=== PATIENT | female | born 1995 | race Two or more races ===

== ENCOUNTER 2019-12-13 12:17 | Emergency (ER) | payer OTHER, MEDICAID ==
[~2019-12-13] VITALS: Ht 180.3 cm; Wt 71.0 kg
[2019-12-13] MEDS ORDERED: SODIUM CHLORIDE FLUSH 10ML SYR IVF ONE (13:00)
[2019-12-13] MEDS ORDERED: OMNIPAQUE 350 MG/ML, 100ML BOTTLE ONE (14:34)
[2019-12-13 15:26] VITALS: BP 117/68
== END 2019-12-13 15:35 | disposition home or self-care (01) ==
LOC: ED 13:55
DX: S16.1XXA Strain of muscle, fascia and tendon at neck level, initial encounter (principal); S80.02XA Contusion of left knee, initial encounter; R07.9 Chest pain, unspecified; R10.9 Unspecified abdominal pain; V89.2XXA Person injured in unspecified motor-vehicle accident, traffic, initial encounter; Y93.89 Activity, other specified; Y92.488 Other paved roadways as the place of occurrence of the external cause; Y99.8 Other external cause status
CPT/HCPCS: 36415; 71046; 72125; 73564; 74177; 84703; 99285; Q9967